=== PATIENT | male | born 1975 | race Caucasian/White ===

== ENCOUNTER 2016-04-12 22:41 | Emergency (ER) | payer BC ==
[~2016-04-12] VITALS: Ht 177.8 cm; Wt 93.0 kg
[~2016-04-12 22:41] MED LIST: AMOX1TAB61 PO
[2016-04-12 22:56] VITALS: BP 122/79
--- NOTE | 2016-04-12 23:05 | PHYS DOC ---
Past Medical History Past Medical History: Other Additional Past Medical Histor: [employer]IAISON Past Surgical History: Other Additional Past Surgical Histo: bilat knee Alcohol Use: Occasionally Drug Use: None Adult General Chief Complaint Chief Complaint: ALLERGIC REACTION HPI HPI Patient is a 40 year old male who presents with swelling to lips and hives intermittently for three weeks. Lips began to swell this time approximately three hours ago. Denies wheezing, tongue swelling, shortness of breath, difficulty swallowing or known. Review of Systems Review of Systems Constitutional: Denies fever or chills Eyes: Denies change in visual acuity, redness, or eye pain HENT: Denies nasal congestion or sore throat. Swelling to lips 3 hours Respiratory: Denies cough or shortness of breath Cardiovascular: No additional information not addressed in HPI GI: Denies abdominal pain, nausea, vomiting, bloody stools or diarrhea : Denies dysuria or hematuria Musculoskeletal: Denies back pain or joint pain Integument: Hives to trunk intermittently for three weeks Neurologic: Denies headache, focal weakness or sensory changes [] Endocrine: Denies polyuria or polydipsia [] Current Medications Current Medications Current Medications Medications (Trade) Dose Ordered Sig/Mehul Start Time Stop Time Status Last Admin Dose Admin Famotidine (Pepcid) 20 mg 1X ONCE 04/12/16 23:15 04/12/16 23:16 DC 04/12/16 23:16 20 MG Methylprednisolone Sodium Succinate (Solu-Medrol 125mg Vial) 125 mg 1X ONCE 04/12/16 23:15 04/12/16 23:16 DC 04/12/16 23:17 125 MG Allergies Allergies Allergies Coded Allergies Type Severity Reaction Last Updated Verified No Known Drug Allergies 10/16/15 No Physical Exam Physical Exam Constitutional: Well developed, well nourished, no acute distress, non-toxic appearance. HENT: Normocephalic, atraumatic, bilateral external ears normal, oropharynx moist, no oral exudates, nose normal. Minimal swelling to lips, no surrounding swelling. No swelling to tongue or oropharnyx, no colby ein voice or hoarseness. Speaking full clear sentences. Eyes: PERRLA, EOMI, conjunctiva normal, no discharge. Neck: Normal range of motion, no tenderness, supple, no stridor. Cardiovascular:Heart rate regular rhythm, no murmur Lungs & Thorax: Bilateral breath sounds clear to auscultation Abdomen: Bowel sounds normal, soft, no tenderness, no masses, no pulsatile masses. Skin: Few hives to right side back and flank without redness or erythema. Back: No tenderness, no CVA tenderness. [] Extremities: No tenderness, no cyanosis, no clubbing, ROM intact, no edema. [] Neurologic: Alert and oriented X 3, normal motor function, normal sensory function, no focal deficits noted. [] Psychologic: Affect normal, judgement normal, mood normal. [] Current Patient Data Vital Signs Vital Signs Date Time Temp Pulse Resp B/P Pulse Ox O2 Delivery O2 Flow Rate FiO2 04/12/16 22:56 98.4 85 18 122/79 94 Room Air 98.4 EKG EKG [] Radiology/Procedures Radiology/Procedures [] Impressions: Allergic reaction Course & Med Decision Making Course & Med Decision Making Pertinent Labs and Imaging studies reviewed. (See chart for details) Spoke with patient regardign IV therapy and he preferred to get shot and go home because he is very tired. Given in depth return precautions and instructed to call 911 with increased swelling or shortness of breath Dragon Disclaimer Dragon Disclaimer This electronic medical record was generated, in whole or in part, using a voice recognition dictation system. Departure Departure Impression: Primary Impression: Allergic reaction Disposition: 01 HOME, SELF-CARE Condition: STABLE Referrals: NO PCP (PCP) RADHAMES ARZOLA MD Patient Instructions: Hives, [id number] Additional Instructions: Continue the pepcid and benadryl at home as directed. Take medications as prescribed. return with worsening swelling, swelling to tongue or throat, wheezing, or any problems or concerns. Follow up with Primary doctor in 1-2 days. Adult Health Clinical Nurse Specialist in the area, Dr. Ellis [phone] Scripts Prednisone 50 Mg [id number] Mg PO DAILY 5 Days Prov:DUSTIN PETERS APRN 04/12/16 DUSTIN PETERS APRN Apr 12, 2016 23:05
[2016-04-12] MEDS ORDERED: PRED50TA PO (23:13)
[2016-04-12] MEDS ORDERED: FAMOTIDINE 20 MG TABLET. PO ONE (23:15)
[2016-04-12] MEDS ORDERED: methylPREDNISolone SOD SUCC PF 125 MG/2 ML VIAL. IM ONE (23:15)
== END 2016-04-12 23:23 | disposition home or self-care (01) ==
LOC: ER 22:41
DX: T78.40XA Allergy, unspecified, initial encounter (principal); X58.XXXA Exposure to other specified factors, initial encounter
CPT/HCPCS: 96372; 99283; J2930